=== PATIENT | female | born 1990 | race Caucasian/White ===

== ENCOUNTER 2019-05-24 20:05 | Inpatient (IN) ==
[2019-05-24 22:11] LABS: BASO# 0.08 X1000 (0.0-0.2); BASO% 0.8 % (0.0-0.8); EOS# 0.48 X1000 (0.0-0.7); EOS% 4.8 % (0.0-10.0); HEMATOCRIT 39.3 % (37.0-47.0); HEMOGLOBIN 12.7 g/dL (12.0-16.0); IMM GRAN# 0.02 X1000 (0.0-0.04); IMM GRAN% 0.2 % (0.0-0.5); LYMPH# 2.92 X1000 (1.2-3.4); MCH 29.4 PG (27-31); MCHC 32.3 g/dL (33-37); MONO# 0.78 X1000 (0.11-0.59); MONO% 7.7 % (1.7-9.3); MPV 11.8 FL (7.4-10.4); NEUT# 5.79 X1000 (1.4-6.5); NEUT% 57.5 % (42.2-75.2); PLT 343 X1000 (130-400); RBC 4.32 XMIL (4.2-5.4); RDW 13.6 % (11.5-14.5); WBC 10.07 X1000 (4.8-10.8)
--- NOTE | 2019-05-24 22:20 | PROVIDER DOCUMENTATION ---
HPI-General Adult - General Chief Complaint: Abdominal Pain Stated Complaint: PAIN (R) RIB/BACK AREA, RADIATES INTO NECK Time Seen by Provider: 05/24/19 20:58 Source: patient Allergies/Adverse Reactions: Patient Allergies Allergy/AdvReac Type Severity Reaction Status Date / Time cefaclor [From Ceclor] Allergy Unknown Unknown Verified 01/10/17 19:46 Penicillins Allergy Unknown Unknown Verified 01/10/17 19:46 Home Medications: Home Medication List Medication Instructions Recorded Confirmed Last Taken Type Cyclobenzaprine [Flexeril] 10 mg PO QHS PRN #15 tab 03/22/18 Unknown Rx Tramadol [Ultram] 50 mg PO Q8HR #10 tab 03/22/18 Unknown Rx Cyclobenzaprine [Flexeril] 10 mg PO TID #20 tab 10/20/18 Unknown Rx - History of Present Illness -Gen Adult Nature of Presenting Problems: Patient is a 28 yowf who complains of pain in RUQ that radiates around to back and into right shoulder blade and neck x 2 days. States, "I think it may be from my son walking on my back." States she also has had a non-productive cough. The pain is exacerbated by deep inspiration, coughing, and sneezing. Denies fever or any other symptoms. She is non-toxic in appearance. Review of Systems - Adult - REVIEW OF SYSTEMS - ADULT Constitutional: reports: no symptoms reported Eyes: reports: no symptoms reported Ears, Nose, Mouth & Throat: reports: no symptoms reported Cardiovascular: reports: no symptoms reported Respiratory: reports: see HPI Gastrointestinal: reports: see HPI Genitourinary: reports: no symptoms reported Musculoskeletal: reports: see HPI Integumentary: reports: no symptoms reported Neurological: reports: no symptoms reported Psychiatric: reports: no symptoms reported Endocrine: reports: no symptoms reported Hematologic/Lymphatic: reports: no symptoms reported Allergic/Immunologic: reports: no symptoms reported All Other Systems: Reviewed and Negative Past History - Adult - PAST MEDICAL HISTORY-ADULT Review of Records: reports: Nursing Assessment Review, Medications Reviewed Major Childhood Illnesses: reports: denies history Cardiovascular: reports: denies history Respiratory: reports: bronchitis Gastrointestinal: reports: denies history Obstetrical/Gynecological: reports: denies history Genitourinary: reports: denies history Musculoskeletal: reports: denies history Neurological: reports: denies history Psychiatric: reports: denies history Endocrine/Immune: reports: denies history Other Conditions: reports: denies history - PRIOR SURGERIES/PROCEDURES Surgical/Procedure History: reports: reviewed, not pertinent - IMMUNIZATION STATUS Childhood Immunizations: See Nurse Assessment Flu Vaccine: See Nurse Assessment - FAMILY HISTORY Family History: reviewed, not pertinent - SOCIAL HISTORY Smoking: cigarettes, less than 1 pack/day Physical Exam-General - PHYSICAL EXAM-ADULT Initial Vital Signs Reviewed: Yes - CONSTITUTIONAL General Appearance: alert, no apparent distress. negative: lethargic, slow to respond - EYES Eyes: PERRL/EOMI, pink conjunctivae - HEAD, EARS, NOSE, MOUTH & THROAT HENMT: normocephalic/atraumatic, moist mucous membranes - NECK Neck: full range of motion, supple, normal inspection - RESPIRATORY Respiratory: lungs clear, normal breath sounds, no respiratory distress, no accessory muscle use, other (right rib region tender to palpation) - CARDIOVASCULAR Cardiovascular: normal peripheral pulses, regular rate, rhythm, no edema, no gallop, no murmur - GASTROINTESTINAL (ABDOMEN) Abdominal Exam: normal bowel sounds, non tender, soft, no organomegaly, no pulsatile mass. negative: distended, guarding, rigid, rebound, tenderness, hernia, mass, McBurney's point tenderness - MUSCULOSKELETAL Back Exam: normal inspection, no CVA tenderness Extremity: normal range of motion, non-tender, normal gait, normal inspection - SKIN Integumentary: normal color, warm/dry. negative: cyanosis, diaphoresis, jaundice, mottled, pallor - NEUROLOGIC Neurologic: grossly normal, no motor/sensory deficits - PSYCHIATRIC Psych/Mental Status: normal mood/affect, normal thought content, normal thought process, oriented x 3 Progress - PLAN OF CARE/RESULTS Progress/Plan/Lab Results: Vital Signs - 8 hr 05/24/19 20:05 Temperature 98.1 F Pulse Rate 80 Respiratory Rate 15 Blood Pressure 158/96 O2 Sat by Pulse Oximetry 100 Laboratory Results - last 24 hr 05/24/19 05/24/19 22:01 22:01 WBC 10.07 RBC 4.32 Hgb 12.7 Hct 39.3 MCV 91.0 MCH 29.4 MCHC 32.3 L RDW Std Deviation 13.6 Plt Count 343 MPV 11.8 H Immature Gran % (Auto) 0.2 Neut % (Auto) 57.5 Lymph % (Auto) 29.0 Glasscock % (Auto) 7.7 Eos % (Auto) 4.8 Baso % (Auto) 0.8 Immature Gran # (Auto) 0.02 Neut # (Auto) 5.79 Lymph # (Auto) 2.92 Glasscock # (Auto) 0.78 H Eos # (Auto) 0.48 Baso # (Auto) 0.08 Urine Test NEGATIVE Orders Category Date Time Status Saline Loc DIRECTED Care 05/24/19 20:53 Active NPO Diet 05/24/19 20:53 Active ABDOMEN FLAT/UPRIGHT [RAD] Stat Exams 05/24/19 21:12 Ordered CHEST-2 VIEWS [RAD] Stat Exams 05/24/19 21:12 Ordered AMYLASE [CHEM] Stat Lab 05/24/19 22:02 Received CBC WITH ELECTRONIC DIFF [HEME] Stat Lab 05/24/19 22:01 Completed COMPREHENSIVE METABOLIC PANEL [CHEM] Stat Lab 05/24/19 22:02 Received LIPASE [CHEM] Stat Lab 05/24/19 22:02 Received TEST-URINE [PREG] Stat Lab 05/24/19 22:01 Completed TEST-URINE [PREG] Stat Lab 05/24/19 22:15 Ordered URINALYSIS W/POSS RFLX CULT [URINALYSIS] Stat Lab 05/24/19 22:14 Ordered Pt signed out to me. CT Abd/Pelvis returns with findings of acute cholecystitis. Spoke to Dr. Gupta, who will admit. Will start Zosyn per attending's request. Pt has been made aware of results. She states she is unsure of what allergic rxn she has to penicillin. Result Diagrams: 05/24/19 22:01 05/24/19 22:01 - XRAY 1 XRAY Study: Chest (Lungs normally expanded and clear. No pneumothorax, pulmonary edema, or infiltrates. Over read by Dr. Blackwell.) - CONSULTS/PCP/HOSPITALIST Notification #1 *Consult/PCP/Hospitalist*: Candy Time Discussed: 00:47 Consult Disposition: Admit - CHANGE OF SHIFT REPORT (ED Provider) 1 Report Given and Care Transferred to:: Dr. Hutson Time of Transfer: 23:57 Items Pending: CT/MRI Results Departure - Departure Date of Disposition Decision: 05/25/19 Time of Disposition Decision: 01:10 DIAGNOSIS: Abdominal pain Disposition: ADMITTED INPATIENT 09 Certified Medical Emergency: Emergent Condition: Fair Referrals and Follow-Ups: None,PCP [Primary Care Provider] - - Critical Care Note This patient required my direct & personal management of CC.: No Attestation - Physician/ ZEESHAN Attestation Patient care was provided by Advanced Practice Provider:: Yes Advanced Practice Provider:: Anuj Braun Advanced Practice Provider documentation review:: The Mid-level provider documentation, treatment plan and medical decision making was reviewed by the physician who agrees with all treatment and medical decision making by the MLP. The physician spent face to face time with patient:: Yes Advanced Practice Provider documentation review:: Supervising physician onsite and consulted in the evaluation and care of this patient. The physician did have a face to face encounter with the patient.
[2019-05-24 22:22] LABS: URINE SOURCE CLEAN CATCH
[2019-05-24 22:26] LABS: BILIRUBIN URINE NEGATIVE (NEGATIVE); BLOOD URINE MODERATE (NEGATIVE); COLOR YELLOW; GLUCOSE URINE NEGATIVE (NEGATIVE); KETONE URINE TRACE mg/dL (NEGATIVE); LEUKOCYTES URINE SMALL (NEGATIVE); NITRITE URINE NEGATIVE (NEGATIVE); PROTEIN URINE 50 mg/dL (NEGATIVE); SP GRAVITY URINE 1.037; TURBIDITY URINE HAZY (CLEAR); UROBILINOGEN URINE NORMAL (NORMAL)
[2019-05-24 22:35] LABS: UR EPITHELIAL CELLS >10 /HPF (<10); URINE BACTERIA 1+ /HPF; URINE RBC <10 /HPF (<10); URINE WBC 20-40 /HPF (<10)
[2019-05-24 22:53] LABS: URINE YEAST NONE SEEN
[2019-05-24 22:54] LABS: AGAP 9; ALB/GLOB RATIO 1.7; ALKALINE PHOSPHATASE 74 U/L (32-104); AMYLASE 24 U/L (20-200); BUN 13 mg/dL (8-22); CALCIUM 8.9 mg/dL (8.8-10.2); CHLORIDE 106 mmol/L (98-107); COSMO 290; CREATININE 0.6 mg/dL (0.5-0.9); ESTIMATED GFR > 60; GLUCOSE 79 mg/dL (70-104); GOT 14 U/L (10-30); GPT 10 U/L (10-36); LIPASE 11 U/L (13-60); POTASSIUM 3.8 mmol/L (3.5-5.1); SODIUM 146 mmol/L (136-145); TCO2 31 mmol/L (25-35); TOTAL BILIRUBIN < 0.15 mg/dL (0.20-1.00); TOTAL PROTEIN 6.3 g/dL (6.3-8.3)
[2019-05-24 22:54] LABS: URINE CASTS NONE SEEN; URINE CRYSTALS CA OXALATE PRESENT; URINE SMALL ROUND CELLS NONE SEEN
[2019-05-24] MEDS ORDERED: CIPRO 400 MG/D5W 400 MG/200 ML IVPB IV ONE (22:56)
[2019-05-24] MEDS ORDERED: TORADOL IV ONE (23:25)
[2019-05-25] MEDS ORDERED: ZOSYN 3.375 GM in NS 50 ML IV ONE (00:47)
[2019-05-25] MEDS ORDERED: NS 1,000 ML IV ONE (02:34)
[2019-05-25] MEDS ORDERED: TORADOL IV ONE (02:39)
[2019-05-25] MEDS ORDERED: LEVAQUIN 750 MG/D5W 750 MG/150 ML IVPB IV SCH (05:30)
--- NOTE | 2019-05-25 07:19 | Diag Imaging Result Doc PS360 ---
EXAM: CHEST-2 VIEWS 05/24/2019 HISTORY: RUQ/back pain TECHNIQUE: PA and lateral chest COMMENT: There is no evidence of acute cardiac or pulmonary disease. Compared to 10/15/2015 there has been no significant change in the appearance the chest. IMPRESSION: No evidence of acute disease. Electronically signed by Catracho Campoverde 05/25/2019 7:16 AM
--- NOTE | 2019-05-25 08:18 | Diag Imaging Result Doc PS360 ---
EXAM: CT RENAL STONE SEARCH 05/24/2019 HISTORY: RUQ pain radiating to back TECHNIQUE: This exam was performed using automated exposure control, adjustment of mA or kV according to patient size, and/or use of iterative reconstruction technique. COMMENT: There is no evidence of acute disease in the visualized portion of the chest. There is a splenule anterior to the spleen. There is no evidence of nephrolithiasis or hydronephrosis. The gallbladder is contracted and there are no apparent stones. There is pericholecystic fluid however. There is no evidence of bowel obstruction. The abdominal aorta is not distended. There is some stool in the colon particularly the right colon. The appendix is normal in appearance. The urinary bladder is not distended. There are apparent small follicles and cysts in both ovaries. There is vacuum disc phenomenon at L5-S1 and bilateral spondylolysis at L5. There is no evidence of significant spondylolisthesis. No evidence of acute bony abnormality is present. IMPRESSION: The possibility of acalculous cholecystitis cannot be excluded. Electronically signed by Catracho Campoverde 05/25/2019 8:16 AM
--- NOTE | 2019-05-25 08:50 | EKG Report ---
Test Performed on : 05/25/2019 08:34:31 AM Test Reason : BRADYCARDIA Blood Pressure : / mmHG Vent. Rate : 045 BPM Atrial Rate : 045 BPM P-R Int : 142 ms QRS Dur : 094 ms QT Int : 498 ms P-R-T Axes : 045 082 074 degrees QTc Int : 430 ms Sinus bradycardia. with sinus arrhythmia. Otherwise normal ECG When compared with ECG of 25-MAY-2019 07:53, (Unconfirmed) No significant change was found Confirmed by Jessica MOORE, Andry Coffman ([id number]) on 05/26/2019 9:02:41 AM
[2019-05-25] MEDS: MORPHINE IV PRN ×2 (09:02→11:54)
--- NOTE | 2019-05-25 12:25 | HISTORY AND PHYSICAL ---
DATE: 05/25/2019 REQUESTING PHYSICIAN: Emergency Department. REASON FOR CONSULTATION: Concerning cholecystitis. HISTORY OF PRESENT ILLNESS: A 28-year-old female presenting with right upper quadrant pain. She says the pain has been going on for a couple days and it radiates back to her back. She has never had pain like this before. Denies nausea or vomiting, but does report if she takes a deep breath it is worse. She had a CT scan that showed cholecystitis. I was asked to weigh an opinion. PAST MEDICAL HISTORY: None. PAST SURGICAL HISTORY: Includes intestinal surgery 1-day-old. Patient is unsure of the details. SOCIAL HISTORY: Current smoker. ALLERGIES: Penicillins and cephalosporins. FAMILY HISTORY: Reviewed with patient, noncontributory to this case. HOME MEDICATIONS: Flexeril, Ultram. REVIEW OF SYSTEMS: Full 14 systems reviewed and negative, other than as specified in HPI. PHYSICAL EXAMINATION: Vital Signs: Patient is currently afebrile. Her vital signs are stable. General Exam: No acute distress, but appears uncomfortable. A female who looks stated age. HEENT: Normocephalic, atraumatic. Pupils equal, round, reactive to light. Mucous membranes moist. Oropharynx benign. Neck: Supple. Trachea midline. Cardiovascular: Regular rate and rhythm. Lungs: Grossly clear. Abdomen: Soft. Tender to palpation right upper quadrant. Positive West sign. Extremities: Moves all extremities. Neurologic: Grossly intact. Skin: No signs of jaundice. Vascular: All extremities perfused. LABORATORY: White blood cell count is normal, hematocrit is normal, platelet count is normal. There is no left shift. Bilirubin, AST, ALT and alkaline phosphatase are all normal. IMAGING: CT scan independently reviewed and radiology report reviewed. It looks like she has got cholecystitis. ASSESSMENT AND PLAN: A 28-year-old female with cholecystitis. 1. Cholecystitis. At this time, we will plan on admitting the patient. She has been given antibiotics. We will keep her on Levaquin and Flagyl. We will plan on surgical intervention today. Discussed with her the risks, benefits, and alternatives of the procedure. Risks including, but not limited to bleeding, infection, risk of anesthesia ,risk of common bile duct injury and bile leak, risk of injuring other organs, need to convert to an open procedure, need to place a drain. All this was discussed with the patient. She voiced understanding and wishes to proceed. We will schedule for today. cc: Greg Gupta MD
[2019-05-25] MEDS ORDERED: FLAGYL 500 MG/NS 500 MG/100 ML IVPB IV SCH (13:00)
[2019-05-25] MEDS ORDERED: DIPRIVAN 1% ONE ×2 (13:31→13:54)
[2019-05-25] MEDS ORDERED: XYLOCAINE-MPF 2% ONE ×2 (13:34→13:51)
[2019-05-25] MEDS ORDERED: QUELICIN (DOSE) ONE ×2 (13:34→13:54)
[2019-05-25] MEDS ORDERED: ROBINUL ONE ×3 (13:34→15:05)
[2019-05-25] MEDS ORDERED: ZEMURON ONE (13:54)
[2019-05-25] MEDS ORDERED: FENTANYL ONE (13:54)
[2019-05-25] MEDS ORDERED: SENSORCAINE 0.25%/EPI 1:200,000 ONE (13:56)
[2019-05-25] MEDS ORDERED: LR 1,000 ML ONE (13:56)
[2019-05-25] MEDS ORDERED: SODIUM CHLORIDE 0.9% ONE (13:58)
[2019-05-25] MEDS ORDERED: NEOSTIGMINE ONE (14:45)
[2019-05-25] MEDS ORDERED: BSS OPHTH SOLN ONE (15:36)
[2019-05-25] MEDS ORDERED: BENADRYL ONE (15:50)
[2019-05-25] MEDS ORDERED: NORCO-10 ONE (15:55)
[2019-05-25] MEDS ORDERED: ZOFRAN IV PRN (16:21)
[2019-05-25] MEDS: NORCO-10 PO PRN (19:00)
[2019-05-25] MEDS: PERIDEX MT SCH (20:40)
--- NOTE | 2019-05-25 21:51 | OPERATIVE NOTE ---
PROCEDURE DATE: 05/25/2019 PREOPERATIVE DIAGNOSIS: Cholecystitis. POSTOPERATIVE DIAGNOSIS: Cholecystitis. PROCEDURE: Laparoscopic cholecystectomy. SURGEON: Greg Gupta MD. DATA MANAGEMENT SPECIALIST: None. ANESTHESIA: General endotracheal. INTRAOPERATIVE FINDINGS: Cholecystitis. COMPLICATIONS: None at the time of this dictation. ESTIMATED BLOOD LOSS: 20 mL. SPECIMENS REMOVED: Gallbladder. BRIEF HISTORY: A 28-year-old female presenting with right upper quadrant pain. CT scan showed cholecystitis. It was felt that she would benefit from cholecystectomy. The risks, benefits, and alternatives were discussed and documented in the chart. All questions answered. DESCRIPTION OF PROCEDURE: After informed consent was obtained, the patient was brought to the operative theatre, transferred to the operating table, and placed in supine position. General endotracheal anesthesia was then performed without complication. A formal time-out was then performed, confirming patient, date, procedure. All in agreement. At that time, attention was given to the abdomen. An infraumbilical incision was made, through which using the Optiview technique, we inserted an 11 mm trocar, connected to insufflation, pneumoperitoneum was achieved. Under direct visualization, we placed 3 more trocars, all 5 mm, 1 in subxiphoid, 2 in the right upper quadrant. Using these, the gallbladder was identified, had some adhesions suggestive of a chronic issue. We were able to elevate it, dissect the surrounding tissue off. We were able to elevate it further and elevate it cephalad to dissect out the cystic duct and cystic artery to achieve the critical view of safety. We doubly clipped and ligated the cystic duct and cystic artery, then dissected the gallbladder off the gallbladder fossa. We then placed into an endobag and brought out through the infraumbilical incision. The infraumbilical incision was airtight, so we did not have to close it. There was some bile drained in the abdomen, so we irrigated it out until the suction fluid was clear. We then removed all trocars, disconnected insufflation. Pneumoperitoneum was released. All skin incisions were closed with 4-0 Monocryl. The patient tolerated the procedure well and was transferred back to the recovery room. cc: Greg Gupta MD
[2019-05-26] MEDS: NORCO-10 PO PRN ×2 (02:58→08:58)
[2019-05-26 08:33] VITALS: BP 127/74
[2019-05-26] MEDS: PERIDEX MT SCH (08:58)
--- NOTE | 2019-05-26 15:02 | GENERAL SURGERY PROGRESS NOTE ---
DATE: 05/26/2019 She is postop day 1 after lap gallbladder. This morning, she is tolerating solid food, is comfortable, and is ready for discharge. Her wounds look fine. She is instructed to call and get an appointment to see Dr. Gupta within a week. We will discharge her home today. She will have hydrocodone 10 for her medication. Her questions were answered. cc: MD Greg Luna MD
== END 2019-05-26 10:00 | disposition home or self-care (01) | DRG 419 ==
LOC: ED 20:05 → SUATTDRO 05-25 03:36 → EDIPHOLD 05-25 03:36 → 4N 05-25 08:07
PROVIDERS: ADMIT Surgery; ATTEND Surgery